=== PATIENT | female | born 1995 | race Caucasian/White ===

== ENCOUNTER 2020-11-21 19:33 | Emergency (ER) | payer OTHER, SELFPAY ==
[2020-11-21 19:34] VITALS: BP 119/78; PULSE 96; RESP 18; TEMP 36.6; O2SAT 100; BMI 30.5
--- NOTE | 2020-11-21 19:47 | EKG12_ITS ---
Test Reason : CP Blood Pressure : / mmHG Vent. Rate : 094 BPM Atrial Rate : 094 BPM P-R Int : 128 ms QRS Dur : 078 ms QT Int : 354 ms P-R-T Axes : 067 003 055 degrees QTc Int : 442 ms Normal sinus rhythm Normal ECG Confirmed by SEMAJ ERICKSON, BRITT ([id number]), health editor LONNIE FERNANDEZ ([id number]) on 11/23/2020 1:57:14 PM Referred By: SUSAN Confirmed By:BRITT CHA MD
--- NOTE | 2020-11-21 19:48 | EDS_ITS ---
HPI History of Present Illness Chief Complaint: Chest Pain Informant: patient Onset/Context/Timing Onset: Today Activity at onset: - (Woke with pain at 7 AM.) Timing: Waxes and wanes Quality: Positive for Sharp and Tightness Location: Right Chest Current Severity: Moderate Maximum Severity: Moderate Worsened By: Breathing Relieved By: Rest Narrative Narrative: Patient presents secondary to chest pain in the right upper chest that she noted upon waking at 7 AM this morning. She states pain is worse with a deep breath. She denies recent URI symptoms. No significant personal or family cardiac history or risk for DVT. Past medical history: Allergy induced asthma [facility] Medical History (Updated 11/21/20 @ 21:[address] Key Islas MD) Asthma Home Medications albuterol 90 mcg INHALATION 4X/DAY PRN PRN 11/21/20 [History Last Taken Unknown] budesonide-formoterol 2 puff INHALATION BID 11/21/20 [History Last Taken Unknown] cholecalciferol (vitamin D3) [Vitamin D3] 50 mcg PO DAILY 11/21/20 [History Last Taken Unknown] dupilumab See Rx Instructions .ROUTE .COMPLEX 11/21/20 [History Last Taken Unknown] famotidine 20 mg PO BID 11/21/20 [History Last Taken Unknown] fexofenadine 180 mg PO BID 11/21/20 [History Last Taken Unknown] fluticasone propionate [Flonase Allergy Relief] 1 spray INTRANASAL DAILY 11/21/20 [History Last Taken Unknown] hydroxyzine HCl 10 mg PO TID PRN 11/21/20 [History Last Taken Unknown] montelukast [Singulair] 10 mg PO QHS 11/21/20 [History Last Taken Unknown] prednisone 40 mg PO DAILY #8 tab 11/21/20 [Rx Last Taken Unknown] Allergy/AdvReac Type Severity Reaction Status Date / Time pollen extracts Allergy Hives Verified 11/21/20 19:38 Social History Smoking Status: Never smoker ROS ROS ED Constitutional Constitutional ED: Denies chills or fever(s) Eyes Eyes: Denies change in vision ENT ENT ED: Denies sore throat Cardiovascular Cardiovascular: Reports chest pain Respiratory/Chest Respiratory/Chest: Reports dyspnea and other Details: Increased pain with deep breath ; Denies cough Gastrointestinal Gastrointestinal: Denies abdominal pain, diarrhea, nausea or vomiting Genitourinary Genitourinary ED: Denies dysuria Musculoskeletal Musculoskeletal: Denies back pain Integumentary Denies rash Neurologic Neurologic: Denies headache(s) or weakness Psychiatric Psychiatric: Denies anxiety or depression Endocrine Endocrinology: Denies polydipsia or polyuria Allergic/Immunologic Allergic/Immunologic ED: Denies urticaria EXAM Physical Exam Const Vital Signs: 11/21/20 19:34 11/21/20 20:03 11/21/20 20:28 Temperature 97.8 F Temperature Source Temporal Pulse Rate 96 Respiratory Rate 18 Respiratory Effort Normal Non-Labored Respiratory Pattern Normal Blood Pressure 119/78 Blood Pressure Mean 91 Pulse Ox 100 98 Oxygen Delivery Method Room Air Room Air 11/21/20 21:47 Temperature Temperature Source Pulse Rate 96 Respiratory Rate 15 Respiratory Effort Respiratory Pattern Blood Pressure 115/87 H Blood Pressure Mean Pulse Ox 97 Oxygen Delivery Method Positive well nourished and well developed General Appearance ED: well developed HEENT Reports normocephalic and head/scalp atraumatic Eyes PERRL and EOMs intact bilaterally Neck supple Chest Wall inspection of chest normal and palpation of chest normal Resp normal respiratory effort and clear to auscultation bilaterally Cardio regular rhythm Rate: tachycardic GI normal to inspection, nondistended, normoactive bowel sounds Palpation: soft Back/Spine no CVA tenderness Extremity normal to inspection Neuro oriented x3 and no sensory deficits noted Sensorium / Orientation: alert Motor Exam: strength 5/5 throughout Psych mental status grossly normal Skin no rashes or lesions noted Heart Score History: Slightly/Non-Suspicious ECG: Normal Age: </= 45 years Risk Factors: No Risk Factors Troponin: </= Normal Limit Score: 0 MDM MDM MDM Narrative Medical decision making narrative: Patient was given a dose of IV Toradol. EKG, chest x-ray, labs obtained. Lab Data Attestation: I reviewed the patient's lab results. Labs: Laboratory Results - last 24 hr 11/21/20 11/21/20 11/21/20 19:55 19:55 19:55 WBC 8.8 RBC 4.90 Hgb 14.3 Hct 41.9 MCV 85.5 MCH 29.2 MCHC 34.1 RDW Std Deviation 37.3 RDW Coeff of [place] 11.9 Plt Count 283 MPV 10.8 Immature Gran % (Auto) 0.200 Neut % (Auto) 64.8 Lymph % (Auto) 20.7 [place] % (Auto) 7.4 Eos % (Auto) 6.3 H Baso % (Auto) 0.6 Absolute Neuts (auto) 5.7 Absolute Lymphs (auto) 1.82 Nucleated RBC % 0 D-Dimer Quant (PE/DVT) <= 0.27 Sodium 139 Potassium 3.6 Chloride 106 Carbon Dioxide 28.0 Anion Gap 5 BUN 10 Creatinine 0.75 Estim Creat Clear Calc 86.53 Est GFR (MDRD) Af Amer 113 Est GFR (MDRD) Non-Af 94 BUN/Creatinine Ratio 13.4 Glucose 100 Calcium 9.1 Troponin I High Sens 3.6 Serum , Qual 11/21/20 19:55 WBC RBC Hgb Hct MCV MCH MCHC RDW Std Deviation RDW Coeff of [place] Plt Count MPV Immature Gran % (Auto) Neut % (Auto) Lymph % (Auto) [place] % (Auto) Eos % (Auto) Baso % (Auto) Absolute Neuts (auto) Absolute Lymphs (auto) Nucleated RBC % D-Dimer Quant (PE/DVT) Sodium Potassium Chloride Carbon Dioxide Anion Gap BUN Creatinine Estim Creat Clear Calc Est GFR (MDRD) Af Amer Est GFR (MDRD) Non-Af BUN/Creatinine Ratio Glucose Calcium Troponin I High Sens Serum , Qual NEGATIVE Radiography Chest X-Ray - ED: 1 View, Read by ED Physician, Normal, Heart, Lungs and Mediastinum Diagnostic Testing: Radiology Impression Chest X-Ray 11/21/20 20:22 IMPRESSION: Normal x-ray examination of the chest. Electronically Signed: Ceasar Luna MD at 21:56 EDT , Service support , EKG Initial EKG: Attestation: I personally reviewed and interpreted this EKG as follows: Interpretation: Sinus Rhythm (Sinus at 94 with no acute ischemia.) Treatment and Re-Evaluation Comments:: On repeat evaluation patient is resting comfortably. Test results discussed with her. Troponin and D-dimer are both negative. EKG is normal. Patient has pleuritic type chest pain and will be treated with a burst of steroids. Discharge Plan Triage Chief Complaint: Chest Pain ED Provider: Key Islas Dx/Rx/DC Orders Clinical Impression: Pleurisy Instructions: ED Pleurisy Prescriptions: New prednisone 20 mg tablet 40 mg PO DAILY Qty: 8 RF: 0 No Action fexofenadine 180 mg Tablet 180 mg PO BID RF: 0 famotidine 20 mg Tablet 20 mg PO BID RF: 0 montelukast [Singulair] 10 mg Tablet 10 mg PO QHS RF: 0 albuterol 90 mcg/actuation Aerosol 90 mcg INHALATION 4X/DAY PRN PRN (Reason: Shortness Of Breath Or Wheezing) RF: 0 fluticasone propionate [Flonase Allergy Relief] 50 mcg/actuation [place],Suspension 1 spray INTRANASAL DAILY RF: 0 budesonide-formoterol 160-4.5 mcg/actuation Hfa Aerosol Inhaler 2 puff INHALATION BID RF: 0 cholecalciferol (vitamin D3) [Vitamin D3] 50 mcg (2,000 unit) Tablet 50 mcg PO DAILY RF: 0 hydroxyzine HCl 10 mg Tablet 10 mg PO TID PRN (Reason: Allergic Symptoms) RF: 0 dupilumab 200 mg/1.14 mL Syringe See Rx Instructions .ROUTE .COMPLEX RF: 0 [facility] [facility] [Primary [facility] Provider] - 1 Week if not improving Disposition Disposition: Home, Self Care Discharge Date/Time: 11/21/20 21:53
[2020-11-21] MEDS: Ketorolac 30 MG/ML Syringe IV (20:02)
[2020-11-21 20:03] VITALS: O2SAT 98
[2020-11-21 20:06] LABS: Absolute Lymphocyte Count 1.82 X10^3/uL (0.83-4.51); Absolute Neutrophil Count 5.7 X10^3/uL (2.0-7.7); Basophil# 0.05 X10^3/uL; Basophil% 0.6 % (0-1); Eosinophil# 0.55 X10^3/uL; Eosinophils% 6.3 % (0-5); Hematocrit 41.9 % (37-47); Hemoglobin 14.3 g/dL (12.0-15.0); Lymphocyte # 1.82 X10^3/ul (0.83-4.51); Lymphocyte % 20.7 % (19-41); Mean Corp Hgb Conc 34.1 g/dL (32-36); Mean Corpuscular Hgb 29.2 pg (27.0-32.0); Mean Corpuscular Volume 85.5 fL (81-99); Mean Platelet Vol. 10.8 fl (6.2-12.0); Monocyte# 0.65 X10^3/uL; Monocyte% 7.4 % (0-10); NRBC Flagged by Analyzer 0 % (0-5); Neutrophil # 5.71 X10^3/uL (2.7-7.7); Neutrophil % 64.8 % (47-70); Platelet Count 283 K/mm3 (150-450); RBC Distribution Width CV 11.9 % (11.6-14.6); RBC Distribution Width SD 37.3 fl (35.1-43.9); White Blood Count 8.8 K/mm3 (4.4-11.0)
[2020-11-21] MEDS: 0.9% Normal Saline 1,000 ML 150 ML IV (20:10)
--- NOTE | 2020-11-21 20:22 | RAD_ITS ---
STUDY: X-RAY CHEST REASON FOR EXAM: Female, 24 years old. chest pain TECHNIQUE: Single AP portable view of the chest. COMPARISON: None. FINDINGS: The lungs are clear and expanded. There is no demonstrated pleural abnormality. Normal size heart. Normal mediastinum and norma. Normal visualized pulmonary arteries. Normal visualized aortic arch and descending thoracic aorta. Normal visualized thoracic spine. Normal visualized ribs, clavicles, and shoulders. There is no demonstrated abnormality of the visualized soft tissue structures of the upper abdomen. RAD/Chest 1 View (Portable) IMPRESSION: Normal x-ray examination of the chest. Electronically Signed: Ceasar Luna MD at 21:56 EDT , Service support ,
[2020-11-21 20:23] LABS: Internal QC Validated? YES +Cl - CLEAR BKGD; Pregnancy, Serum, hCG Quali. NEGATIVE Negative
[2020-11-21 20:30] LABS: Anion Gap 5 (5-15); BUN 10 mg/dL (7-18); BUN/Creat Ratio 13.4 RATIO (10-20); Calcium,Total 9.1 mg/dL (8.5-10.1); Chloride 106 mmol/L (98-107); Creatinine, Serum 0.75 mg/dL (0.55-1.02); EST Glomerular Filtration Rate 94 mL/min (>60); Est Glom Filt Rate - Afr Amer 113 mL/min (>60); Estimated Creatinine Clearance 86.53 ml/min; Glucose 100 mg/dL (74-106); Potassium 3.6 mmol/L (3.5-5.1); Sodium Level 139 mmol/L (136-145); Troponin-I HS 3.6 pg/mL (3.0-53.7)
[2020-11-21 20:46] LABS: D-Dimer Quantitative (DVT/PE) <= 0.27 FEU/ug/m (0.27-0.49)
[2020-11-21 21:47] VITALS: BP 115/87; PULSE 96; RESP 15; O2SAT 97
[2020-11-21] MEDS: predniSONE 20 MG Tablet 40 MG PO (21:49)
== END 2020-11-21 21:53 | disposition home or self-care (01) ==
PROVIDERS: Emergency Provider Emergency Medicine
DX: R09.1 Pleurisy (principal); J45.909 Unspecified asthma, uncomplicated; Z79.51 Long term (current) use of inhaled steroids
CPT/HCPCS: 71045; 80048; 84484; 84703; 85025; 85379; 93005; 96361; 96374; 99284; J7030; A4216